=== PATIENT | female | born 1940 | race Caucasian/White ===

== ENCOUNTER 2018-05-31 12:28 | Emergency (ER) | payer MEDICARE, BC ==
[~2018-05-31] VITALS: Ht 157.5 cm; Wt 52.0 kg
[~2018-05-31 12:28] MED LIST: CRAN200C PO; DICY10CA88 PO; DILT120C46 PO; LOP25T PO; NEBI10TA4 PO; NORCO10T PO; PERM60CR4 TOP; [UNRECOGNIZED DRUG - CODE] PO
[2018-05-31] MEDS ORDERED: CYCL-1 PO (15:06)
[2018-05-31] MEDS ORDERED: morphine 4 MG/ML inj SYRINge IM ONE (15:10)
[2018-05-31] MEDS ORDERED: ondansetron 4mg rapidly disintigrating tab PO ONE (15:10)
[2018-05-31 16:07] VITALS: BP 146/62
== END 2018-05-31 16:09 | disposition home or self-care (01) ==
LOC: ER 12:29
DX: S46.811A Strain of other muscles, fascia and tendons at shoulder and upper arm level, right arm, initial encounter (principal); F11.23 Opioid dependence with withdrawal; I25.10 Atherosclerotic heart disease of native coronary artery without angina pectoris; I10 Essential (primary) hypertension; G89.29 Other chronic pain; Z90.49 Acquired absence of other specified parts of digestive tract; Z90.710 Acquired absence of both cervix and uterus; Z98.890 Other specified postprocedural states; Z88.1 Allergy status to other antibiotic agents; Z88.8 Allergy status to other drugs, medicaments and biological substances; Z79.899 Other long term (current) drug therapy; X50.1XXA Overexertion from prolonged static or awkward postures, initial encounter; Y93.89 Activity, other specified; Y92.89 Other specified places as the place of occurrence of the external cause; Y99.9 Unspecified external cause status
CPT/HCPCS: 96372; 99283; J2270

== ENCOUNTER 2019-07-26 10:58 | Inpatient (IN) | payer MEDICARE, BC ==
[~2019-07-26] VITALS: Ht 157.5 cm; Wt 47.0 kg
[~2019-07-26 10:58] MED LIST changes: +CYCL-1 PO; +atropine 0.1mg/ml 10ml syringe ONE
[2019-07-26] MEDS ORDERED: normal saline 1000ML IV soln IVB ONE (11:20)
--- NOTE | 2019-07-26 11:23 | NUR ---
MD AT BEDSIDE. PT PERFUSING POORLY, DISTAL CYANOSIS TO FINGERTIPS AND FEET, TIPS OF EARS. PT GIVEN DOSE OF ATROPINE, 0.5MG
[2019-07-26] MEDS ORDERED: atropine 0.1mg/ml 10ml syringe IV ONE (11:25)
[2019-07-26 11:34] LABS: BASOPHILS # (AUTO) 0.1 X10'3 (0-0.2); BASOPHILS % (AUTO) 0.6 % (0-1); EOSINOPHILS % (AUTO) 0.1 % (0-6); HEMATOCRIT 37.4 % (35.0-45.0); HEMOGLOBIN 11.9 g/dl (12.0-16.0); LYMPHOCYTES # (AUTO) 1.9 X10'3 (1.1-4.8); LYMPHOCYTES % (AUTO) 16.9 % (21-51); MEAN CORPUSCULAR HEMOGLOBIN 28.2 PG (27.0-31.0); MEAN CORPUSCULAR HGB CONC 31.8 g/dL (33.0-36.5); MEAN CORPUSCULAR VOLUME 88.7 FL (78-98); MEAN PLATELET VOLUME 8.7 FL (7.4-10.4); MONOCYTES # (AUTO) 0.6 X10'3 (0-0.9); MONOCYTES % (AUTO) 5.7 % (2-12); NEUTROPHILS # (AUTO) 8.7 X10'3 (1.8-7.7); NEUTROPHILS % (AUTO) 76.7 % (42-75); PLATELET COUNT 133 X10'3 (140-440); RED BLOOD COUNT 4.22 X10'6 (4.20-5.60); RED CELL DISTRIBUTION WIDTH 15.3 % (11.5-14.5); WHITE BLOOD COUNT 11.4 X10'3 (4.5-11.0)
--- NOTE | 2019-07-26 11:42 | NUR ---
BP IMPROVED AFTER ATROPINE DOSE, HEART RATE BETTER. DR STRICKLAND WAS IN ROOM TO CONSULT, EKG REPEATED. PT'S HEART RATE IN 40'S, HIGH 61, VARIABLE
[2019-07-26 11:47] LABS: PARTIAL THROMBOPLASTIN TIME 23 SECONDS (22-32)
[2019-07-26 11:49] LABS: ALANINE AMINOTRANSFERASE 19 U/L (12-78); ALBUMIN 3.1 G/DL (3.4-5.0); ALKALINE PHOSPHATASE 83 IU/L (46-116); ANION GAP 11 (8-16); ASPARTATE AMINO TRANSFERASE 22 U/L (10-37); BILIRUBIN,TOTAL 0.6 MG/DL (0.1-1.0); BLOOD UREA NITROGEN 18 MG/DL (7-18); CALCIUM 8.5 MG/DL (8.5-10.1); CHLORIDE 103 MMOL/L (99-107); CREATININE 1.29 MG/DL (0.40-0.90); GLUCOSE 117 MG/DL (70-104); POTASSIUM 4.7 MMOL/L (3.5-5.1); SODIUM 138 MMOL/L (135-145); TOTAL CARBON DIOXIDE 24.5 MMOL/L (24-32); TOTAL PROTEIN 6.2 G/DL (6.4-8.2); eGFR 40 ML/MIN
[2019-07-26 11:57] LABS: MAGNESIUM 1.9 MG/DL (1.5-2.4)
[2019-07-26] MEDS ORDERED: [UNRECOGNIZED DRUG - CODE] (11:58)
[2019-07-26] MEDS ORDERED: GABA-530 PO (11:58)
[2019-07-26] MEDS ORDERED: HYDR-3964 PO (11:58)
[2019-07-26] MEDS ORDERED: DULO20CA18 PO (11:58)
[2019-07-26] MEDS ORDERED: ESCI20TA38 PO (11:58)
[2019-07-26] MEDS ORDERED: CYCL-1 PO (11:59)
[2019-07-26] MEDS ORDERED: potassium Cl 20 mEq SR tablet PO PRN ×2 (13:05)
[2019-07-26] MEDS ORDERED: acetaminophen 325mg tablet PO PRN (13:05)
[2019-07-26] MEDS ORDERED: potassium CL 10mEq/100ml bag 100 ML IV PRN ×2 (13:05)
[2019-07-26] MEDS ORDERED: magnesium 2GM in 50ml NS 50 ML IV PRN (13:05)
[2019-07-26] MEDS ORDERED: magnesium Cl slow-release 64mg tablet PO PRN (13:05)
[2019-07-26] MEDS ORDERED: magnesium 4gm in 100ml NS 100 ML IV PRN (13:05)
[2019-07-26] MEDS ORDERED: ondansetron/PF 4mg/2ml inj IV PRN (13:05)
--- NOTE | 2019-07-26 13:46 | NUR ---
CALLED TO GIVE REPORT, NURSE BUSY, TO CALL BACK
[2019-07-26 14:23] VITALS: BP 133/61
--- NOTE | 2019-07-26 14:23 | NUR ---
ARRIVED TO ROOM 311 ACCE UNIT AT THIS TIME.
[2019-07-26] MEDS ORDERED: atropine 0.1mg/ml 10ml syringe IV PRN (14:45)
[2019-07-26 15:00] VITALS: BP_SYST 150; BP_SYST 158; BP_DIAS 72; BP_DIAS 79
[2019-07-26] MEDS: normal saline 1000ml 1,000 ML IV SCH (15:07)
[2019-07-26] MEDS ORDERED: FLU VACC QS2019-20 36MOS UP/PF 60 MCG/0.5 ML SYRINGE IMVAC ONE (16:35)
[2019-07-26 17:27] VITALS: BP 158/72
[2019-07-26 18:00] VITALS: BP 123/79
--- NOTE | 2019-07-26 18:00 | NUR ---
Patient in room MED 311. I have received report from Sindy CHADWICK and had the opportunity to ask questions and assume patient care.
--- NOTE | 2019-07-26 18:30 | NUR ---
Problems reprioritized. Patient report given, questions answered & plan of care reviewed with Charu CHADWICK.
--- NOTE | 2019-07-26 18:36 | NUR ---
Page to ECHO: 311 pt Brannon has an active order for an ECHO. Thank you.
--- NOTE | 2019-07-26 19:15 | NUR ---
promotional table spacer PAGER ID: [phone] MESSAGE: DAMEON LANDAVERDE: HOME MEDS CONFIRMED, MED REC NEEDED. NORCO FOR PAIN NOT ON EMAR, PLEASE ADD. VELMA CHADWICK ACCE [phone]
[2019-07-26 20:00] VITALS: BP_SYST 139; BP_SYST 145; BP_SYST 153; BP_DIAS 65; BP_DIAS 70; BP_DIAS 72
--- NOTE | 2019-07-26 20:23 | NUR ---
promotional table spacer PAGER ID: [phone] MESSAGE: 311 DAMEON MURPHY NEEDS PAIN MED FOR 8/10 NECK/SHOULDER PAIN, HOME MEDS INCLUDE NORCO AND MED REC NEEDS OK BY . PLEASE RESPOND, THANKS, VELMA CORRALES [phone]
[2019-07-26] MEDS ORDERED: hyDRALAzine 10mg tablet PO SCH (21:00)
[2019-07-26] MEDS ORDERED: hyDRALAzine 10mg tablet PO ONE (21:00)
[2019-07-26] MEDS: HYDROcodone/acetaminophen 5mg/325mg tablet PO PRN (21:03)
--- NOTE | 2019-07-26 21:16 | NUR ---
promotional table spacer PAGER ID: [phone] MESSAGE: 311 DAMEON LEE: REQUESTED PEPCID/OMEPRAZOLE FOR GERD-FORGOT TO MENTION THIS MED IN ER-VELMA ACCChelsi [phone]
[2019-07-26] MEDS ORDERED: hyDRALAzine 10mg tablet PO PRN (21:30)
[2019-07-26] MEDS ORDERED: pantoprazole 40mg Tablet.DR PO ONE (21:35)
[2019-07-26 22:00] VITALS: BP 139/70
--- NOTE | 2019-07-26 23:00 | NUR ---
received report from radha CHADWICK
[2019-07-27] MEDS: HYDROcodone/acetaminophen 5mg/325mg tablet PO PRN ×3 (01:16→10:54)
[2019-07-27 02:00] VITALS: BP 158/78
[2019-07-27] MEDS ORDERED: hyDRALAzine 10mg tablet PO SCH ×2 (02:00)
--- NOTE | 2019-07-27 06:00 | NUR ---
I have received report from Rubia Huizar RN and had the opportunity to ask questions and assume patient care.
[2019-07-27 06:24] LABS: BASOPHILS # (AUTO) 0.1 X10'3 (0-0.2); BASOPHILS % (AUTO) 1.1 % (0-1); EOSINOPHILS % (AUTO) 0.5 % (0-6); HEMATOCRIT 35.1 % (35.0-45.0); HEMOGLOBIN 11.5 g/dl (12.0-16.0); LYMPHOCYTES # (AUTO) 2.1 X10'3 (1.1-4.8); LYMPHOCYTES % (AUTO) 26.3 % (21-51); MEAN CORPUSCULAR HEMOGLOBIN 28.3 PG (27.0-31.0); MEAN CORPUSCULAR HGB CONC 32.7 g/dL (33.0-36.5); MEAN CORPUSCULAR VOLUME 86.5 FL (78-98); MEAN PLATELET VOLUME 8.6 FL (7.4-10.4); MONOCYTES # (AUTO) 0.5 X10'3 (0-0.9); MONOCYTES % (AUTO) 6.3 % (2-12); NEUTROPHILS # (AUTO) 5.2 X10'3 (1.8-7.7); NEUTROPHILS % (AUTO) 65.8 % (42-75); PLATELET COUNT 128 X10'3 (140-440); RED BLOOD COUNT 4.06 X10'6 (4.20-5.60); WHITE BLOOD COUNT 7.9 X10'3 (4.5-11.0)
--- NOTE | 2019-07-27 06:26 | NUR ---
gave report to NETTA Aaron
[2019-07-27 06:29] LABS: ALBUMIN 2.8 G/DL (3.4-5.0); ANION GAP 8 (8-16); BLOOD UREA NITROGEN 13 MG/DL (7-18); BUN/CREATININE RATIO 14.6 (6.6-38.0); CHLORIDE 106 MMOL/L (99-107); CREATININE 0.89 MG/DL (0.40-0.90); GLUCOSE 81 MG/DL (70-104); MAGNESIUM 1.8 MG/DL (1.5-2.4); POTASSIUM 3.8 MMOL/L (3.5-5.1); SODIUM 141 MMOL/L (135-145); TOTAL CARBON DIOXIDE 26.9 MMOL/L (24-32); eGFR 61 ML/MIN
[2019-07-27] MEDS ORDERED: pantoprazole 40mg Tablet.DR PO SCH (07:30)
[2019-07-27] MEDS: normal saline 1000ml 1,000 ML IV SCH (07:50)
[2019-07-27] MEDS ORDERED: K and/or MAG REPLACEMENT MC SCH (08:00)
[2019-07-27] MEDS ORDERED: duloxetine 20mg capsule.DR PO SCH (10:55)
[2019-07-27] MEDS ORDERED: cyclobenzaprine 10mg tablet PO PRN (10:55)
[2019-07-27] MEDS ORDERED: FLU VACC QS2019-20 36MOS UP/PF 60 MCG/0.5 ML SYRINGE IMVAC ONE (11:05)
--- NOTE | 2019-07-27 12:30 | NUR ---
Pt. given discharge instructions and all questions answered. PIV removed, no complications.
[2019-07-27] MEDS ORDERED: HYDROcodone/acetaminophen 5mg/325mg tablet PO SCH (13:00)
[2019-07-27] MEDS ORDERED: gabapentin 100mg capsule PO SCH (20:00)
[2019-07-27] MEDS ORDERED: dicyclomine 10 MG capsule PO SCH (20:00)
[2019-07-28] MEDS ORDERED: diltiazem CD 120mg capsule (once-daily) PO SCH (08:00)
[2019-07-28] MEDS ORDERED: CRANBERRY EXTRACT 200 MG PO SCH (08:00)
[2019-07-28] MEDS ORDERED: ESCITALOPRAM OXALATE 5 MG TABLET PO SCH (08:00)
[2019-07-28] MEDS ORDERED: FLU VACC QS2019-20 36MOS UP/PF 60 MCG/0.5 ML SYRINGE IMVAC ONE (10:00)
== END 2019-07-27 12:20 | disposition home health service (06) | DRG 312 ==
LOC: ER 10:59 → ED HOLD 13:04 → MED 3N 14:47
PROVIDERS: ADMIT Internal Medicine; ATTEND Internal Medicine
DX: I95.2 Hypotension due to drugs (principal); I10 Essential (primary) hypertension; I25.10 Atherosclerotic heart disease of native coronary artery without angina pectoris; M54.2 Cervicalgia; F32.9 Major depressive disorder, single episode, unspecified; T46.1X5A Adverse effect of calcium-channel blockers, initial encounter; T44.7X5A Adverse effect of beta-adrenoreceptor antagonists, initial encounter; M25.512 Pain in left shoulder; G89.29 Other chronic pain; J38.00 Paralysis of vocal cords and larynx, unspecified; M54.9 Dorsalgia, unspecified; Z90.49 Acquired absence of other specified parts of digestive tract; Z90.710 Acquired absence of both cervix and uterus; Z95.2 Presence of prosthetic heart valve; Z98.1 Arthrodesis status; Z79.899 Other long term (current) drug therapy; Z23 Encounter for immunization; Z88.1 Allergy status to other antibiotic agents; Y92.89 Other specified places as the place of occurrence of the external cause
CPT/HCPCS: 36415; 71045; 80048; 80053; 83735; 83880; 84484; 85025; 85610; 85730; 87081; 92508; 92616; 93005; 96361; 96374; 97116; 97162; 97530; 99285; G0378; J0461; J7030; Q2037

== ENCOUNTER 2020-01-05 11:34 | Emergency (ER) | payer MEDICARE, BC ==
[~2020-01-05] VITALS: Ht 157.5 cm; Wt 47.0 kg
[~2020-01-05 11:34] MED LIST changes: +DULO20CA18 PO; +ESCI20TA45 PO; +GABA-530 PO; +HYDR-3964 PO; -LOP25T PO; -NEBI10TA4 PO; -NORCO10T PO; -PERM60CR4 TOP; +[UNRECOGNIZED DRUG - CODE]; -atropine 0.1mg/ml 10ml syringe ONE
--- NOTE | 2020-01-05 11:56 | NUR ---
PT TO CT, PT IS 79 YO FEMALE C/O GRD LEVEL FALL TWO DAYS AGO, PT SAID SHE FELT LIKE SHE WAS GOING TO FAINT, FELL AND HIT EDGE OF SHOWER, +LOC "A FEW SECONDS", DX WITH UTI 3 DAYS AGO, COMPLIANT WITH TAKING ANTIBIOTIC PRESCRIBED, PT HAS BRUISE TO LEFT EYE, LEFT HAND, ABRASION TO LEFT FOREHEAD AND LEFT KNEE, BANDAID IS DRY AND INTACT, PT ABLE TO TRANSFER SELF FROM GURNEY TO WHEELCHAIR WITH MIN ASSISTANCE, C/O FEELING LIGHTHEADED
[2020-01-05 13:09] LABS: ALANINE AMINOTRANSFERASE 21 U/L (12-78); ALBUMIN 3.2 G/DL (3.4-5.0); ALBUMIN/GLOBULIN RATIO 0.9 (1.1-1.5); ALKALINE PHOSPHATASE 80 IU/L (46-116); ANION GAP 4 (8-16); ASPARTATE AMINO TRANSFERASE 24 U/L (10-37); BILIRUBIN,TOTAL 0.2 MG/DL (0.1-1.0); BLOOD UREA NITROGEN 18 MG/DL (7-18); BUN/CREATININE RATIO 12.1 (6.6-38.0); CALCIUM 9.1 MG/DL (8.5-10.1); CHLORIDE 101 MMOL/L (99-107); CREATININE 1.49 MG/DL (0.40-0.90); GLUCOSE 84 MG/DL (70-104); POTASSIUM 4.8 MMOL/L (3.5-5.1); SODIUM 135 MMOL/L (135-145); TOTAL CARBON DIOXIDE 29.7 MMOL/L (24-32); TOTAL PROTEIN 6.9 G/DL (6.4-8.2); eGFR 34 ML/MIN
[2020-01-05] MEDS ORDERED: normal saline 1000ML IV soln IVB ONE ×2 (13:15→14:45)
[2020-01-05 13:23] LABS: BASOPHILS # (AUTO) 0.1 X10'3 (0-0.2); BASOPHILS % (AUTO) 0.7 % (0-1); EOSINOPHILS # (AUTO) 0.1 X10'3 (0-0.9); EOSINOPHILS % (AUTO) 0.9 % (0-6); HEMATOCRIT 39.4 % (35.0-45.0); HEMOGLOBIN 12.7 g/dl (12.0-16.0); LYMPHOCYTES # (AUTO) 1.8 X10'3 (1.1-4.8); LYMPHOCYTES % (AUTO) 18.4 % (21-51); MEAN CORPUSCULAR HEMOGLOBIN 29.7 PG (27.0-31.0); MEAN CORPUSCULAR HGB CONC 32.4 g/dL (33.0-36.5); MEAN CORPUSCULAR VOLUME 91.8 FL (78-98); MONOCYTES # (AUTO) 0.6 X10'3 (0-0.9); MONOCYTES % (AUTO) 6.3 % (2-12); NEUTROPHILS % (AUTO) 73.7 % (42-75); PLATELET COUNT 198 X10'3 (140-440); RED BLOOD COUNT 4.29 X10'6 (4.20-5.60); RED CELL DISTRIBUTION WIDTH 13.6 % (11.5-14.5); WHITE BLOOD COUNT 9.5 X10'3 (4.5-11.0)
[2020-01-05 13:40] LABS: PARTIAL THROMBOPLASTIN TIME 25 SECONDS (22-32)
--- NOTE | 2020-01-05 13:58 | NUR ---
ATTEMPTED IV X2, NO SUCCESS, ANOTHER RN TO TRY
--- NOTE | 2020-01-05 15:08 | NUR ---
pt back from CT and MRI
--- NOTE | 2020-01-05 15:50 | NUR ---
labor trainer at bedside
[2020-01-05 15:59] LABS: CLARITY,URINE CLEAR (Clear); COLOR,URINE YELLOW (Yellow); GLUCOSE, URINE NEGATIVE (Neg); KETONES,URINE NEGATIVE (Neg); LEUKOCYTE ESTERASE ,URINE NEGATIVE (Neg); NITRITES, URINE NEGATIVE (Neg); OCCULT BLOOD,URINE NEGATIVE (Neg); PH,URINE 6.5 (4.8-8.0); PROTEIN,URINE NEGATIVE (Neg); UA COLLECTION TYPE CLN CATCH MIDSTREAM; UROBILINOGEN,URINE 0.2 E.U/dL (0.2-1.0)
[2020-01-05] MEDS ORDERED: CIPR-230 PO (16:58)
[2020-01-05 17:18] VITALS: BP 135/75
== END 2020-01-05 17:24 | disposition home or self-care (01) ==
LOC: ER 11:35
DX: S09.90XA Unspecified injury of head, initial encounter (principal); S69.92XA Unspecified injury of left wrist, hand and finger(s), initial encounter; R42 Dizziness and giddiness; N17.9 Acute kidney failure, unspecified; I25.10 Atherosclerotic heart disease of native coronary artery without angina pectoris; I10 Essential (primary) hypertension; G89.29 Other chronic pain; Z90.710 Acquired absence of both cervix and uterus; Z98.890 Other specified postprocedural states; Z90.49 Acquired absence of other specified parts of digestive tract; Z88.8 Allergy status to other drugs, medicaments and biological substances; Z79.2 Long term (current) use of antibiotics; Z79.899 Other long term (current) drug therapy; W19.XXXA Unspecified fall, initial encounter; Y93.E1 Activity, personal bathing and showering; Y92.89 Other specified places as the place of occurrence of the external cause; Y99.8 Other external cause status
CPT/HCPCS: 36415; 70450; 71045; 72125; 73090; 73130; 73560; 80053; 81003; 83880; 84484; 85025; 85610; 85730; 93005; 96360; 96361; 99285; J7030

== ENCOUNTER 2020-02-12 12:22 | Emergency (ER) | payer MEDICARE, BC ==
[~2020-02-12] VITALS: Ht 157.5 cm; Wt 47.7 kg
[2020-02-12] MEDS ORDERED: diphenhydrAMINE 50 mg/ml inj IM ONE (14:30)
[2020-02-12] MEDS ORDERED: proCHLORperazine 10 MG/2 ml inj IM ONE (14:30)
[2020-02-12 16:11] VITALS: BP 165/94
== END 2020-02-12 15:50 | disposition home or self-care (01) ==
LOC: ER 12:24
DX: G43.909 Migraine, unspecified, not intractable, without status migrainosus (principal); I25.10 Atherosclerotic heart disease of native coronary artery without angina pectoris; I10 Essential (primary) hypertension; G89.29 Other chronic pain; Z90.49 Acquired absence of other specified parts of digestive tract; Z90.710 Acquired absence of both cervix and uterus; Z98.890 Other specified postprocedural states; Z88.8 Allergy status to other drugs, medicaments and biological substances; Z79.899 Other long term (current) drug therapy
CPT/HCPCS: 70450; 72125; 96372; 99285; J0780; J1200

== ENCOUNTER 2020-03-05 21:48 | Emergency (ER) | payer MEDICARE, BC ==
[~2020-03-05] VITALS: Ht 157.5 cm; Wt 46.4 kg
--- NOTE | 2020-03-05 22:12 | NUR ---
pt to ct
[2020-03-05 22:19] LABS: BASOPHILS # (AUTO) 0.1 X10'3 (0-0.2); EOSINOPHILS # (AUTO) 0.1 X10'3 (0-0.9); EOSINOPHILS % (AUTO) 1.2 % (0-6); HEMATOCRIT 35.9 % (35.0-45.0); HEMOGLOBIN 11.8 g/dl (12.0-16.0); LYMPHOCYTES % (AUTO) 22.8 % (21-51); MEAN CORPUSCULAR HEMOGLOBIN 30.2 PG (27.0-31.0); MEAN CORPUSCULAR HGB CONC 32.9 g/dL (33.0-36.5); MEAN CORPUSCULAR VOLUME 91.9 FL (78-98); MEAN PLATELET VOLUME 8.1 FL (7.4-10.4); MONOCYTES # (AUTO) 0.6 X10'3 (0-0.9); MONOCYTES % (AUTO) 6.6 % (2-12); NEUTROPHILS # (AUTO) 5.9 X10'3 (1.8-7.7); NEUTROPHILS % (AUTO) 68.4 % (42-75); PLATELET COUNT 270 X10'3 (140-440); RED CELL DISTRIBUTION WIDTH 14.9 % (11.5-14.5); WHITE BLOOD COUNT 8.7 X10'3 (4.5-11.0)
[2020-03-05 22:31] LABS: ALANINE AMINOTRANSFERASE 16 U/L (12-78); ALBUMIN 2.9 G/DL (3.4-5.0); ALBUMIN/GLOBULIN RATIO 0.7 (1.1-1.5); ALKALINE PHOSPHATASE 77 IU/L (46-116); ANION GAP 4 (8-16); ASPARTATE AMINO TRANSFERASE 14 U/L (10-37); BILIRUBIN,TOTAL 0.2 MG/DL (0.1-1.0); BLOOD UREA NITROGEN 18 MG/DL (7-18); BUN/CREATININE RATIO 18.4 (6.6-38.0); CALCIUM 8.7 MG/DL (8.5-10.1); CHLORIDE 103 MMOL/L (99-107); CREATININE 0.98 MG/DL (0.40-0.90); GLUCOSE 90 MG/DL (70-104); POTASSIUM 4.2 MMOL/L (3.5-5.1); SODIUM 134 MMOL/L (135-145); TOTAL CARBON DIOXIDE 27.3 MMOL/L (24-32); TOTAL PROTEIN 6.8 G/DL (6.4-8.2); eGFR 55 ML/MIN
[2020-03-05 23:07] VITALS: BP 152/95
== END 2020-03-05 23:08 | disposition home or self-care (01) ==
LOC: ER 21:49
DX: S80.212A Abrasion, left knee, initial encounter (principal); S80.211A Abrasion, right knee, initial encounter; S09.90XA Unspecified injury of head, initial encounter; G44.319 Acute post-traumatic headache, not intractable; M54.2 Cervicalgia; G43.909 Migraine, unspecified, not intractable, without status migrainosus; I25.10 Atherosclerotic heart disease of native coronary artery without angina pectoris; I10 Essential (primary) hypertension; G89.29 Other chronic pain; Z90.710 Acquired absence of both cervix and uterus; Z98.890 Other specified postprocedural states; Z88.1 Allergy status to other antibiotic agents; Z79.899 Other long term (current) drug therapy; W18.30XA Fall on same level, unspecified, initial encounter; Y93.89 Activity, other specified; Y92.89 Other specified places as the place of occurrence of the external cause; Y99.8 Other external cause status
CPT/HCPCS: 36415; 70450; 80053; 85025; 93005; 99285

== ENCOUNTER 2020-11-14 03:26 | Inpatient (IN) | payer MEDICARE, BC ==
[~2020-11-14] VITALS: Ht 157.5 cm; Wt 47.8 kg
[~2020-11-14 03:26] MED LIST changes: +ESCI20TA39 PO; -ESCI20TA45 PO
[2020-11-14 05:41] LABS: BASOPHILS # (AUTO) 0.1 X10'3 (0-0.2); EOSINOPHILS # (AUTO) 0.1 X10'3 (0-0.9); HEMATOCRIT 41.4 % (35.0-45.0); HEMOGLOBIN 13.7 g/dl (12.0-16.0); WHITE BLOOD COUNT 17.7 X10'3 (4.5-11.0)
[2020-11-14 05:42] LABS: BASOPHILS % (AUTO) 0.3 % (0-1); EOSINOPHILS % (AUTO) 0.3 % (0-6); LYMPHOCYTES # (AUTO) 1.2 X10'3 (1.1-4.8); LYMPHOCYTES % (AUTO) 6.9 % (21-51); MEAN CORPUSCULAR HGB CONC 33.2 g/dL (33.0-36.5); MEAN CORPUSCULAR VOLUME 93.3 FL (78-98); MEAN PLATELET VOLUME 8.4 FL (7.4-10.4); MONOCYTES # (AUTO) 0.8 X10'3 (0-0.9); MONOCYTES % (AUTO) 4.6 % (2-12); NEUTROPHILS # (AUTO) 15.6 X10'3 (1.8-7.7); NEUTROPHILS % (AUTO) 87.9 % (42-75); PLATELET COUNT 239 X10'3 (140-440); RED BLOOD COUNT 4.43 X10'6 (4.20-5.60); RED CELL DISTRIBUTION WIDTH 13.6 % (11.5-14.5)
[2020-11-14] MEDS ORDERED: iohexol 300mg/ml 100ml inj. ONE (05:47)
[2020-11-14 05:50] LABS: ALANINE AMINOTRANSFERASE 24 U/L (12-78); ALBUMIN 3.2 G/DL (3.4-5.0); ALBUMIN/GLOBULIN RATIO 0.9 (1.1-1.5); ALKALINE PHOSPHATASE 74 IU/L (46-116); ANION GAP 7 (8-16); ASPARTATE AMINO TRANSFERASE 27 U/L (10-37); BILIRUBIN,TOTAL 0.3 MG/DL (0.1-1.0); BLOOD UREA NITROGEN 22 MG/DL (7-18); BUN/CREATININE RATIO 23.7 (6.6-38.0); CALCIUM 9.6 MG/DL (8.5-10.1); CHLORIDE 102 MMOL/L (99-107); CREATININE 0.93 MG/DL (0.40-0.90); GLUCOSE 118 MG/DL (70-104); LIPASE 52 U/L (73-393); POTASSIUM 4.2 MMOL/L (3.5-5.1); SODIUM 139 MMOL/L (135-145); TOTAL CARBON DIOXIDE 30.2 MMOL/L (24-32); TOTAL PROTEIN 6.6 G/DL (6.4-8.2); eGFR 58 ML/MIN
[2020-11-14] MEDS ORDERED: morphine 4 MG/ML inj SYRINge IV ONE (06:00)
--- NOTE | 2020-11-14 06:08 | NUR ---
pt to ct via kristy
[2020-11-14] MEDS ORDERED: normal saline 1000ML IV soln IVB ONE (06:10)
--- NOTE | 2020-11-14 06:15 | NUR ---
pt back from ct
[2020-11-14] MEDS ORDERED: piperacillin/tazo 3.375gm/50ml 50 ML IV ONE (07:05)
[2020-11-14] MEDS ORDERED: metroNIDAZOLE-Flagyl 500mg/NS 100 ML IV ONE (07:05)
[2020-11-14 07:11] LABS: CLARITY,URINE CLEAR (Clear); COLOR,URINE YELLOW (Yellow); GLUCOSE, URINE NEGATIVE (Neg); KETONES,URINE NEGATIVE (Neg); LEUKOCYTE ESTERASE ,URINE NEGATIVE (Neg); NITRITES, URINE NEGATIVE (Neg); OCCULT BLOOD,URINE NEGATIVE (Neg); PROTEIN,URINE NEGATIVE (Neg); UROBILINOGEN,URINE 0.2 E.U/dL (0.2-1.0)
[2020-11-14 07:15] LABS: UA COLLECTION TYPE OTHER
[2020-11-14] MEDS ORDERED: magnesium hydroxide 30ml (MOM) UD suspension PO PRN (08:00)
[2020-11-14] MEDS ORDERED: acetaminophen 325mg tablet PO PRN (08:00)
[2020-11-14] MEDS: metroNIDAZOLE-Flagyl 500mg/NS 100 ML IV SCH ×2 (08:00→16:31)
[2020-11-14] MEDS ORDERED: mag hydrox/Alum hydrox/simeth 30ml oral suspension PO PRN (08:00)
[2020-11-14] MEDS ORDERED: ondansetron/PF 4mg/2ml inj IV PRN (08:00)
[2020-11-14] MEDS ORDERED: morphine 2 MG/ML inj. syringe IV PRN ×2 (08:00)
[2020-11-14] MEDS: normal saline 1000ml 1,000 ML IV SCH ×2 (09:31→18:51)
[2020-11-14] MEDS: heparin, porcine 5000 units/ml vial SQ SCH ×2 (09:32→22:32)
--- NOTE | 2020-11-14 11:15 | NUR ---
Pt ambulated to the restroom without any difficulty.
--- NOTE | 2020-11-14 12:16 | NUR ---
Explained to pt and her the reason for pt's admission to the hospital.
[2020-11-14] MEDS ORDERED: PROP300T2 PO (12:58)
[2020-11-14] MEDS ORDERED: NORT25CA PO (12:58)
[2020-11-14] MEDS ORDERED: DILT-88 PO (12:58)
[2020-11-14] MEDS ORDERED: CLOR3.755 PO (12:58)
[2020-11-14] MEDS ORDERED: GABA300T25 PO (12:58)
[2020-11-14] MEDS ORDERED: ESTR20VI4 IM (12:58)
[2020-11-14] MEDS ORDERED: GABA-530 PO (13:00)
[2020-11-14] MEDS ORDERED: CYCL-394 PO (13:00)
--- NOTE | 2020-11-14 13:43 | NUR ---
Pt sleeping. Respirations unlabored. NAD
[2020-11-14] MEDS ORDERED: cyclobenzaprine 10mg tablet PO PRN (14:25)
[2020-11-14] MEDS ORDERED: ESTRADIOL VALERATE 20 MG/ML IM SCH (14:25)
[2020-11-14] MEDS ORDERED: GABA300C PO (14:39)
--- NOTE | 2020-11-14 14:54 | NUR ---
Checked with pt, she states that she does not need her estrogen shot at this time. She will get it from her doctor after she is out of the hospital.
--- NOTE | 2020-11-14 15:18 | NUR ---
Pt resting with eyes closed. Respirations unlabored. NAD
--- NOTE | 2020-11-14 17:43 | NUR ---
Pt is sleeping. Respirations unlabored. NAD
--- NOTE | 2020-11-14 17:44 | NUR ---
Called pt's , Ubaldo, to ask if he could bring her Clorazepate when he came to visit her tonight. He said he would.
[2020-11-14] MEDS: CLORAZEPATE 3.75 MG PO SCH (20:00)
[2020-11-14] MEDS ORDERED: nortriptyline 25mg capsule PO SCH (21:00)
[2020-11-14] MEDS ORDERED: gabapentin 300mg capsule PO SCH (21:00)
[2020-11-14] MEDS: diatr meglu/diatrizoate 30ml oral sol.-(3 dose) bottle PO SCH (22:25)
[2020-11-14] MEDS: propafenone 150mg tablet PO SCH (22:25)
[2020-11-15] MEDS: HYDROcodone/acetaminophen 5mg/325mg tablet PO PRN ×2 (00:14→06:49)
[2020-11-15] MEDS: metroNIDAZOLE-Flagyl 500mg/NS 100 ML IV SCH ×2 (00:14→08:41)
[2020-11-15] MEDS: normal saline 1000ml 1,000 ML IV SCH (05:19)
[2020-11-15] MEDS: diatr meglu/diatrizoate 30ml oral sol.-(3 dose) bottle PO SCH ×2 (06:49→07:56)
[2020-11-15] MEDS ORDERED: gabapentin 100mg capsule PO SCH (07:30)
[2020-11-15] MEDS ORDERED: iohexol 300mg/ml 100ml inj. ONE (07:54)
[2020-11-15] MEDS: propafenone 150mg tablet PO SCH (08:00)
[2020-11-15] MEDS: CLORAZEPATE 3.75 MG PO SCH (08:00)
[2020-11-15] MEDS ORDERED: diltiazem CD 120mg capsule (once-daily) PO SCH (08:00)
--- NOTE | 2020-11-15 08:00 | NUR ---
patient found in room with both IV's pulled out. Appears slightly disoriented but able to answer orientation questions appropriately. patient cleaned up, linens changed, and iv restarted for CT.
[2020-11-15] MEDS: heparin, porcine 5000 units/ml vial SQ SCH (08:44)
--- NOTE | 2020-11-15 08:57 | NUR ---
PT AMBULATED TO BATHROOM
[2020-11-15 10:01] LABS: BASOPHILS % (AUTO) 0.7 % (0-1); EOSINOPHILS % (AUTO) 0.7 % (0-6); HEMATOCRIT 39.6 % (35.0-45.0); LYMPHOCYTES # (AUTO) 1.5 X10'3 (1.1-4.8); LYMPHOCYTES % (AUTO) 22.5 % (21-51); MEAN CORPUSCULAR HEMOGLOBIN 31.3 PG (27.0-31.0); MEAN CORPUSCULAR HGB CONC 32.8 g/dL (33.0-36.5); MEAN CORPUSCULAR VOLUME 95.5 FL (78-98); MEAN PLATELET VOLUME 8.6 FL (7.4-10.4); MONOCYTES # (AUTO) 0.4 X10'3 (0-0.9); MONOCYTES % (AUTO) 5.3 % (2-12); NEUTROPHILS # (AUTO) 4.7 X10'3 (1.8-7.7); NEUTROPHILS % (AUTO) 70.8 % (42-75); PLATELET COUNT 201 X10'3 (140-440); RED BLOOD COUNT 4.15 X10'6 (4.20-5.60); RED CELL DISTRIBUTION WIDTH 13.7 % (11.5-14.5); WHITE BLOOD COUNT 6.7 X10'3 (4.5-11.0)
[2020-11-15 10:08] LABS: ALBUMIN 3.2 G/DL (3.4-5.0); ANION GAP 11 (8-16); BLOOD UREA NITROGEN 14 MG/DL (7-18); BUN/CREATININE RATIO 14.4 (6.6-38.0); CALCIUM 8.2 MG/DL (8.5-10.1); CHLORIDE 102 MMOL/L (99-107); CREATININE 0.97 MG/DL (0.40-0.90); GLUCOSE 121 MG/DL (70-104); POTASSIUM 3.5 MMOL/L (3.5-5.1); SODIUM 139 MMOL/L (135-145); TOTAL CARBON DIOXIDE 25.7 MMOL/L (24-32); eGFR 55 ML/MIN
[2020-11-15 12:34] VITALS: BP 146/67
[2020-11-22] MEDS ORDERED: ESTRADIOL VALERATE 20 MG/ML IM SCH (08:00)
== END 2020-11-15 12:35 | disposition home or self-care (01) | DRG 392 ==
LOC: ER 03:27 → ED HOLD 07:59
PROVIDERS: ADMIT Family Medicine; ATTEND Family Medicine
PROC: BW211ZZ Computerized Tomography (CT Scan) of Abdomen and Pelvis using Low Osmolar Contrast (ICD-10-PCS; principal; 2020-11-14)
PROC: BW211ZZ Computerized Tomography (CT Scan) of Abdomen and Pelvis using Low Osmolar Contrast (ICD-10-PCS; 2020-11-15)
DX: A08.4 Viral intestinal infection, unspecified (principal); E86.0 Dehydration; G89.29 Other chronic pain; I10 Essential (primary) hypertension; I25.10 Atherosclerotic heart disease of native coronary artery without angina pectoris; F32.9 Major depressive disorder, single episode, unspecified; M54.9 Dorsalgia, unspecified; F41.9 Anxiety disorder, unspecified; G43.909 Migraine, unspecified, not intractable, without status migrainosus; Z90.710 Acquired absence of both cervix and uterus; Z88.8 Allergy status to other drugs, medicaments and biological substances; Z90.49 Acquired absence of other specified parts of digestive tract
CPT/HCPCS: 36415; 74177; 80048; 80053; 81003; 83690; 85025; 87081; 96374; 99285; G0378; J1644; J2270; J2405; J2543; J3490; J7030; Q9963; Q9967

== ENCOUNTER 2021-02-05 14:23 | Emergency (ER) | payer MEDICARE, BC ==
[~2021-02-05] VITALS: Ht 157.5 cm; Wt 47.7 kg
[~2021-02-05 14:23] MED LIST changes: +CLOR3.755 PO; -CRAN200C PO; -CYCL-1 PO; +CYCL-394 PO; -DICY10CA88 PO; +DILT-88 PO; -DILT120C46 PO; -DULO20CA18 PO; -ESCI20TA39 PO; +ESTR20VI4 IM; +GABA300C PO; -HYDR-3964 PO; +NORT25CA PO; +PROP300T2 PO; -[UNRECOGNIZED DRUG - CODE]; -[UNRECOGNIZED DRUG - CODE] PO
--- NOTE | 2021-02-05 14:54 | NUR ---
, Ubaldo, bedside. Reports found pt on floor when he came home after having been gone 2 hrs. BP and HR low so he called EMS.
[2021-02-05 15:09] LABS: BASOPHILS % (AUTO) 0.5 % (0-1); EOSINOPHILS % (AUTO) 0.3 % (0-6); HEMATOCRIT 32.4 % (35.0-45.0); HEMOGLOBIN 10.6 g/dl (12.0-16.0); LYMPHOCYTES # (AUTO) 0.9 X10'3 (1.1-4.8); LYMPHOCYTES % (AUTO) 10.2 % (21-51); MEAN CORPUSCULAR HEMOGLOBIN 32.2 PG (27.0-31.0); MEAN CORPUSCULAR HGB CONC 32.8 g/dL (33.0-36.5); MEAN CORPUSCULAR VOLUME 98.4 FL (78-98); MEAN PLATELET VOLUME 8.4 FL (7.4-10.4); MONOCYTES # (AUTO) 0.4 X10'3 (0-0.9); MONOCYTES % (AUTO) 4.7 % (2-12); NEUTROPHILS # (AUTO) 7.5 X10'3 (1.8-7.7); NEUTROPHILS % (AUTO) 84.3 % (42-75); PLATELET COUNT 140 X10'3 (140-440); RED CELL DISTRIBUTION WIDTH 13.8 % (11.5-14.5)
[2021-02-05 15:32] LABS: ALANINE AMINOTRANSFERASE 27 U/L (12-78); ALBUMIN 2.2 G/DL (3.4-5.0); ALBUMIN/GLOBULIN RATIO 0.9 (1.1-1.5); ALKALINE PHOSPHATASE 75 IU/L (46-116); ANION GAP 7 (8-16); ASPARTATE AMINO TRANSFERASE 25 U/L (10-37); BILIRUBIN,TOTAL 0.4 MG/DL (0.1-1.0); BLOOD UREA NITROGEN 17 MG/DL (7-18); BUN/CREATININE RATIO 15.6 (6.6-38.0); CALCIUM 6.4 MG/DL (8.5-10.1); CHLORIDE 111 MMOL/L (99-107); CREATININE 1.09 MG/DL (0.40-0.90); GLUCOSE 98 MG/DL (70-104); POTASSIUM 3.7 MMOL/L (3.5-5.1); SODIUM 141 MMOL/L (135-145); TOTAL CARBON DIOXIDE 23.2 MMOL/L (24-32); TOTAL PROTEIN 4.6 G/DL (6.4-8.2); eGFR 48 ML/MIN
[2021-02-05] MEDS ORDERED: normal saline 1000ml 1,000 ML IV ONE (15:35)
[2021-02-05 15:43] LABS: ETHANOL < 0.010 GM/DL (0.0-0.010); MAGNESIUM 1.5 MG/DL (1.5-2.4)
[2021-02-05] MEDS ORDERED: aspirin 325mg tablet PO ONE (16:00)
[2021-02-05] MEDS ORDERED: OMEP-50 PO (16:52)
[2021-02-05] MEDS ORDERED: LOP25T PO (16:52)
[2021-02-05] MEDS ORDERED: PREVCR VG (16:52)
[2021-02-05 17:13] LABS: CLARITY,URINE CLOUDY (Clear); COLOR,URINE YELLOW (Yellow); GLUCOSE, URINE NEGATIVE (Neg); KETONES,URINE 15 mg/dl (Neg); LEUKOCYTE ESTERASE ,URINE NEGATIVE (Neg); NITRITES, URINE NEGATIVE (Neg); OCCULT BLOOD,URINE NEGATIVE (Neg); PROTEIN,URINE 30 mg/dl (Neg); UROBILINOGEN,URINE 0.2 E.U/dL (0.2-1.0)
[2021-02-05 17:20] LABS: UA COLLECTION TYPE URINAL
[2021-02-05] MEDS ORDERED: HYDROcodone/acetaminophen 5mg/325mg tablet PO PRN (17:20)
[2021-02-05] MEDS ORDERED: normal saline 1000ml 1,000 ML IV SCH ×2 (17:20→17:25)
[2021-02-05] MEDS ORDERED: acetaminophen 325mg tablet PO PRN ×2 (17:20)
[2021-02-05] MEDS ORDERED: morphine 2 MG/ML inj. syringe IV PRN (17:20)
[2021-02-05] MEDS ORDERED: magnesium 2GM in 50ml NS 50 ML IV PRN (17:20)
[2021-02-05] MEDS ORDERED: potassium Cl 40MEQ/1/2NS 520ml 520 ML IV PRN ×2 (17:20)
[2021-02-05] MEDS ORDERED: ondansetron/PF 4mg/2ml inj IV PRN (17:20)
[2021-02-05] MEDS ORDERED: magnesium Cl slow-release 64mg tablet PO PRN (17:20)
[2021-02-05] MEDS ORDERED: potassium Cl 20 mEq SR tablet PO PRN ×2 (17:20)
[2021-02-05] MEDS ORDERED: magnesium 4gm in 100ml NS 100 ML IV PRN (17:20)
[2021-02-05 17:22] LABS: HYALINE CASTS >30 /LPF (NEGATIVE); MUCUS STRANDS MODERATE /LPF (Neg); SQUAMOUS EPITHELIAL CELL,UR MANY /LPF (FEW)
[2021-02-05 17:23] LABS: BACTERIA,URINE 2+ /HPF (Neg); RBC,URINE 0-2 /HPF (0-2); WBC,URINE 0-4 /HPF (0-4)
[2021-02-05 17:28] LABS: URINE AMPHETAMINE SCREEN NEGATIVE (Neg); URINE BARBITUATE SCREEN NEGATIVE (Neg); URINE BENZODIAZEPINES SCREEN POSITIVE (Neg); URINE CANNABINOID SCREEN POSITIVE (Neg); URINE COCAINE SCREEN NEGATIVE (Neg); URINE METHADONE SCREEN NEGATIVE (Neg); URINE OPIATE SCREEN POSITIVE (Neg); URINE PHENCYCLIDINE SCREEN NEGATIVE (Neg)
--- NOTE | 2021-02-05 18:49 | NUR ---
pt having echo done at bedside
[2021-02-05 19:28] VITALS: BP 167/105
[2021-02-05] MEDS ORDERED: K and/or MAG REPLACEMENT MC SCH (20:00)
[2021-02-05] MEDS ORDERED: metoprolol tartrate 25mg tablet PO SCH (20:00)
[2021-02-05] MEDS ORDERED: heparin, porcine 5000 units/ml vial SQ SCH (20:00)
[2021-02-05] MEDS ORDERED: nortriptyline 25mg capsule PO SCH (21:00)
[2021-02-05] MEDS ORDERED: gabapentin 300mg capsule PO SCH (21:00)
[2021-02-06] MEDS ORDERED: pantoprazole 40mg Tablet.DR PO SCH (07:30)
[2021-02-06] MEDS ORDERED: diltiazem CD 120mg capsule (once-daily) PO SCH (08:00)
== END 2021-02-05 20:45 | disposition left against medical advice (07) ==
LOC: ER 14:24 → UNDOADMIN 17:16 → ED HOLD 17:16 → UNDOADMIN 17:36 → ED HOLD 17:36 → UNDODISIN 20:45
DX: I63.9 Cerebral infarction, unspecified (principal); R55 Syncope and collapse; E83.51 Hypocalcemia; I48.91 Unspecified atrial fibrillation; R42 Dizziness and giddiness; G43.909 Migraine, unspecified, not intractable, without status migrainosus; I25.10 Atherosclerotic heart disease of native coronary artery without angina pectoris; I10 Essential (primary) hypertension; G89.29 Other chronic pain; Z86.69 Personal history of other diseases of the nervous system and sense organs; Z90.710 Acquired absence of both cervix and uterus; Z98.890 Other specified postprocedural states; Z88.1 Allergy status to other antibiotic agents; Z88.8 Allergy status to other drugs, medicaments and biological substances; Z79.899 Other long term (current) drug therapy
CPT/HCPCS: 36415; 70450; 71045; 80053; 80305; 80320; 81001; 83735; 83880; 84484; 85025; 93005; 93306; 93880; 96360; 96361; 99285; J7030; G0378

== ENCOUNTER 2021-07-30 11:12 | Outpatient (CLI) | payer MEDICARE, BC ==
[2021-07-30] VITALS (22 sets, daily range): BP systolic 138–179; BP diastolic 88–119
[~2021-07-30 11:12] MED LIST changes: +LOP25T PO; +OMEP-50 PO; +PREVCR VG
== END 2021-07-30 23:59 | disposition home or self-care (01) ==
LOC: CARD DIAG 11:12
PROVIDERS: ATTEND Internal Medicine Cardiovascular Disease
DX: R42 Dizziness and giddiness (principal)
CPT/HCPCS: 93660

== ENCOUNTER 2021-10-07 11:42 | Inpatient (IN) | payer MEDICARE, BC ==
[~2021-10-07] VITALS: Ht 160 cm; Wt 65.0 kg
[~2021-10-07 11:42] MED LIST changes: -OMEP-50 PO; +OMEP20CA16 PO
[2021-10-07] MEDS ORDERED: diltiazem-D5W 125mg/125ml 125 ML IV SCH (11:55)
[2021-10-07] MEDS ORDERED: amiodarone 150mg/dext, iso-os 100 ML IV ONE (12:00)
[2021-10-07 12:20] LABS: BASOPHILS % (AUTO) 0.8 % (0-1); EOSINOPHILS # (AUTO) 0.1 X10'3 (0-0.9); EOSINOPHILS % (AUTO) 1.4 % (0-6); HEMOGLOBIN 13.6 g/dl (12.0-16.0); LYMPHOCYTES # (AUTO) 1.7 X10'3 (1.1-4.8); LYMPHOCYTES % (AUTO) 29.1 % (21-51); MEAN CORPUSCULAR HGB CONC 32.4 g/dL (33.0-36.5); MEAN CORPUSCULAR VOLUME 95.6 FL (78-98); MEAN PLATELET VOLUME 8.4 FL (7.4-10.4); MONOCYTES # (AUTO) 0.5 X10'3 (0-0.9); MONOCYTES % (AUTO) 8.9 % (2-12); NEUTROPHILS # (AUTO) 3.5 X10'3 (1.8-7.7); NEUTROPHILS % (AUTO) 59.8 % (42-75); PLATELET COUNT 209 X10'3 (140-440); RED CELL DISTRIBUTION WIDTH 13.7 % (11.5-14.5); WHITE BLOOD COUNT 5.9 X10'3 (4.5-11.0)
[2021-10-07] MEDS ORDERED: etomidate 2mg/ml inj. IV ONE (12:20)
[2021-10-07] MEDS ORDERED: normal saline 1000ml 1,000 ML IV ONE (12:25)
[2021-10-07] MEDS ORDERED: NORepinephrine 8mg/ 250ml NS 250 ML IV ONE (12:28)
[2021-10-07] MEDS ORDERED: NORepinephrine inj. 32 MG in normal saline 250ml IV soln 218 ML IV SCH (12:30)
[2021-10-07 12:39] LABS: ALANINE AMINOTRANSFERASE 26 U/L (12-78); ALBUMIN 2.9 G/DL (3.4-5.0); ALBUMIN/GLOBULIN RATIO 0.9 (1.1-1.5); ALKALINE PHOSPHATASE 65 IU/L (46-116); ANION GAP 8 (8-16); ASPARTATE AMINO TRANSFERASE 14 U/L (10-37); BILIRUBIN,TOTAL 0.2 MG/DL (0.1-1.0); BLOOD UREA NITROGEN 22 MG/DL (7-18); BUN/CREATININE RATIO 19.5 (6.6-38.0); CALCIUM 7.7 MG/DL (8.5-10.1); CHLORIDE 112 MMOL/L (99-107); CREATININE 1.13 MG/DL (0.40-0.90); GLUCOSE 128 MG/DL (70-104); POTASSIUM 4.1 MMOL/L (3.5-5.1); SODIUM 146 MMOL/L (135-145); TOTAL CARBON DIOXIDE 26.1 MMOL/L (24-32); eGFR 46 ML/MIN
[2021-10-07 12:49] LABS: MAGNESIUM 1.7 MG/DL (1.5-2.4)
[2021-10-07] MEDS ORDERED: NORepinephrine 8mg/ 250ml NS 250 ML IV SCH (12:50)
[2021-10-07] MEDS ORDERED: mag hydrox/Alum hydrox/simeth 30ml oral suspension PO PRN (13:15)
[2021-10-07] MEDS ORDERED: ondansetron/PF 4mg/2ml inj IV PRN (13:15)
[2021-10-07] MEDS ORDERED: morphine 2 MG/ML inj. syringe IV PRN ×2 (13:15)
[2021-10-07] MEDS ORDERED: acetaminophen 325mg tablet PO PRN ×2 (13:15)
[2021-10-07] MEDS ORDERED: magnesium hydroxide 30ml (MOM) UD suspension PO PRN (13:15)
[2021-10-07] MEDS ORDERED: NAPR220T67 PO (13:52)
[2021-10-07] MEDS ORDERED: DILT-35 PO (13:52)
[2021-10-07] MEDS ORDERED: TRAZ-251 PO (13:52)
[2021-10-07] MEDS ORDERED: METO-395 PO (13:52)
[2021-10-07] MEDS ORDERED: GABA-530 PO (13:52)
[2021-10-07] MEDS ORDERED: gabapentin 100mg capsule PO PRN (17:35)
[2021-10-07] MEDS ORDERED: traZODone 50mg tablet PO PRN (17:35)
[2021-10-07] MEDS ORDERED: naproxen sodium 220mg tablet PO PRN (17:35)
[2021-10-07 20:00] VITALS: BP 148/70
[2021-10-07] MEDS: docusate sod 100mg capsule PO SCH (20:00)
--- NOTE | 2021-10-08 00:18 | NUR ---
Paged DR. Dias for a Troponin of 78
[2021-10-08 05:20] VITALS: BP 148/70
[2021-10-08 06:00] VITALS: BP 135/66
[2021-10-08 06:21] LABS: BASOPHILS # (AUTO) 0.1 X10'3 (0-0.2); BASOPHILS % (AUTO) 0.7 % (0-1); EOSINOPHILS # (AUTO) 0.1 X10'3 (0-0.9); EOSINOPHILS % (AUTO) 1.8 % (0-6); HEMATOCRIT 37.2 % (35.0-45.0); HEMOGLOBIN 12.4 g/dl (12.0-16.0); LYMPHOCYTES # (AUTO) 2.5 X10'3 (1.1-4.8); LYMPHOCYTES % (AUTO) 32.7 % (21-51); MEAN CORPUSCULAR HEMOGLOBIN 31.4 PG (27.0-31.0); MEAN CORPUSCULAR HGB CONC 33.4 g/dL (33.0-36.5); MEAN CORPUSCULAR VOLUME 94.2 FL (78-98); MEAN PLATELET VOLUME 8.6 FL (7.4-10.4); MONOCYTES # (AUTO) 0.7 X10'3 (0-0.9); MONOCYTES % (AUTO) 8.7 % (2-12); NEUTROPHILS # (AUTO) 4.2 X10'3 (1.8-7.7); NEUTROPHILS % (AUTO) 56.1 % (42-75); PLATELET COUNT 193 X10'3 (140-440); RED BLOOD COUNT 3.95 X10'6 (4.20-5.60); RED CELL DISTRIBUTION WIDTH 13.8 % (11.5-14.5); WHITE BLOOD COUNT 7.5 X10'3 (4.5-11.0)
--- NOTE | 2021-10-08 06:21 | NUR ---
Problems reprioritized. Patient report given, questions answered & plan of care reviewed with Kristian CHADWICK .
[2021-10-08 06:47] LABS: ALBUMIN 2.8 G/DL (3.4-5.0); ANION GAP 10 (8-16); BLOOD UREA NITROGEN 16 MG/DL (7-18); CALCIUM 7.7 MG/DL (8.5-10.1); CHLORIDE 109 MMOL/L (99-107); CREATININE 0.64 MG/DL (0.40-0.90); GLUCOSE 83 MG/DL (70-104); POTASSIUM 3.6 MMOL/L (3.5-5.1); SODIUM 144 MMOL/L (135-145); TOTAL CARBON DIOXIDE 25.5 MMOL/L (24-32); eGFR 89 ML/MIN
[2021-10-08 08:00] VITALS: BP 135/66
[2021-10-08] MEDS ORDERED: metoprolol succinate 25mg (24-HOUR) SR. Tablet PO SCH (08:00)
[2021-10-08] MEDS ORDERED: diltiazem CD 120mg capsule (once-daily) PO SCH (08:00)
[2021-10-08] MEDS: docusate sod 100mg capsule PO SCH (08:39)
[2021-10-08 10:08] VITALS: BP 135/66
== END 2021-10-08 11:01 | disposition home or self-care (01) | DRG 308 ==
LOC: ER 11:43 → ED HOLD 13:16 → MED 3N 20:00
PROVIDERS: ADMIT Internal Medicine; ATTEND Internal Medicine
PROC: 5A2204Z Restoration of Cardiac Rhythm, Single (ICD-10-PCS; principal; 2021-10-07)
DX: I48.0 Paroxysmal atrial fibrillation (principal); N17.0 Acute kidney failure with tubular necrosis; I10 Essential (primary) hypertension; I25.10 Atherosclerotic heart disease of native coronary artery without angina pectoris; G43.909 Migraine, unspecified, not intractable, without status migrainosus; G89.29 Other chronic pain; M54.9 Dorsalgia, unspecified; I95.9 Hypotension, unspecified; R13.10 Dysphagia, unspecified; R29.6 Repeated falls; Z79.899 Other long term (current) drug therapy; Z86.73 Personal history of transient ischemic attack (TIA), and cerebral infarction without residual deficits; Z90.710 Acquired absence of both cervix and uterus; Z95.3 Presence of xenogenic heart valve; Z98.1 Arthrodesis status; Z88.8 Allergy status to other drugs, medicaments and biological substances; Z90.49 Acquired absence of other specified parts of digestive tract; Z88.1 Allergy status to other antibiotic agents
CPT/HCPCS: 36415; 71045; 80048; 80053; 83605; 83735; 83880; 84145; 84443; 84484; 85025; 85610; 87081; 93005; 93306; 94760; 94799; 96365; 96375; 99285; G0378; J0282; J3490; J7030

== ENCOUNTER 2022-05-05 11:35 | Emergency (ER) | payer MEDICARE, BC ==
[~2022-05-05] VITALS: Ht 157.5 cm; Wt 47.7 kg
[~2022-05-05 11:35] MED LIST changes: +ATOR40TA72 PO; +CLOP75TA33 PO; -CLOR3.755 PO; -CYCL-394 PO; +DILT-35 PO; -DILT-88 PO; -ESTR20VI4 IM; +HYDR-3965 PO; -LOP25T PO; +METO-395 PO; -NORT25CA PO; -PREVCR VG; -PROP300T2 PO
[2022-05-05 12:10] LABS: BASOPHILS # (AUTO) 0.1 X10'3 (0-0.2); BASOPHILS % (AUTO) 0.8 % (0-1); EOSINOPHILS # (AUTO) 0.1 X10'3 (0-0.9); EOSINOPHILS % (AUTO) 0.6 % (0-6); HEMATOCRIT 41.6 % (35.0-45.0); HEMOGLOBIN 14.1 g/dl (12.0-16.0); LYMPHOCYTES # (AUTO) 1.5 X10'3 (1.1-4.8); MEAN CORPUSCULAR HEMOGLOBIN 31.6 PG (27.0-31.0); MEAN CORPUSCULAR HGB CONC 33.8 g/dL (33.0-36.5); MEAN CORPUSCULAR VOLUME 93.5 FL (78-98); MEAN PLATELET VOLUME 8.1 FL (7.4-10.4); MONOCYTES # (AUTO) 0.8 X10'3 (0-0.9); MONOCYTES % (AUTO) 8.1 % (2-12); NEUTROPHILS # (AUTO) 7.4 X10'3 (1.8-7.7); NEUTROPHILS % (AUTO) 75.5 % (42-75); PLATELET COUNT 198 X10'3 (140-440); RED BLOOD COUNT 4.45 X10'6 (4.20-5.60); RED CELL DISTRIBUTION WIDTH 13.1 % (11.5-14.5); WHITE BLOOD COUNT 9.8 X10'3 (4.5-11.0)
[2022-05-05 12:25] LABS: ALANINE AMINOTRANSFERASE 46 U/L (12-78); ALBUMIN 3.5 G/DL (3.4-5.0); ALBUMIN/GLOBULIN RATIO 1.1 (1.1-1.5); ALKALINE PHOSPHATASE 91 IU/L (46-116); ANION GAP 12 (8-16); ASPARTATE AMINO TRANSFERASE 28 U/L (10-37); BILIRUBIN,TOTAL 0.5 MG/DL (0.1-1.0); BLOOD UREA NITROGEN 20 MG/DL (7-18); CALCIUM 9.6 MG/DL (8.5-10.1); CHLORIDE 98 MMOL/L (99-107); CREATININE 1.05 MG/DL (0.40-0.90); GLUCOSE 107 MG/DL (70-104); POTASSIUM 4.7 MMOL/L (3.5-5.1); SODIUM 136 MMOL/L (135-145); TOTAL CARBON DIOXIDE 26.1 MMOL/L (24-32); TOTAL PROTEIN 6.7 G/DL (6.4-8.2); eGFR 50 ML/MIN
[2022-05-05] MEDS ORDERED: normal saline 1000ML IV soln IVB ONE (15:55)
[2022-05-05 16:27] LABS: CLARITY,URINE CLEAR (Clear); COLOR,URINE YELLOW (Yellow); GLUCOSE, URINE NEGATIVE (Neg); KETONES,URINE NEGATIVE (Neg); LEUKOCYTE ESTERASE ,URINE NEGATIVE (Neg); NITRITES, URINE NEGATIVE (Neg); OCCULT BLOOD,URINE NEGATIVE (Neg); PH,URINE 7.5 (4.8-8.0); PROTEIN,URINE NEGATIVE (Neg); UROBILINOGEN,URINE 0.2 E.U/dL (0.2-1.0)
[2022-05-05 16:44] LABS: UA COLLECTION TYPE STRAIGHT CATH
[2022-05-05 17:00] VITALS: BP 157/70
--- NOTE | 2022-05-05 17:30 | NUR ---
Pt's stated that he thinks that his took a total of 1300ml of neurontin over a 2 hour period yesterday. Completed at 1800 yesterday. Also, she uses CBD oil.
--- NOTE | 2022-05-05 18:01 | NUR ---
Pt and given and understands d/c instructions. IV d/c'd, catheter was intact. Escorted out of the department via wheelchair.
== END 2022-05-05 18:00 | disposition home or self-care (01) ==
LOC: ER 11:36
DX: R53.1 Weakness (principal); R35.0 Frequency of micturition; R06.02 Shortness of breath; R42 Dizziness and giddiness; G43.909 Migraine, unspecified, not intractable, without status migrainosus; I11.9 Hypertensive heart disease without heart failure; G89.29 Other chronic pain; M54.9 Dorsalgia, unspecified; M54.59 Other low back pain; Z90.49 Acquired absence of other specified parts of digestive tract; Z88.1 Allergy status to other antibiotic agents; Z79.899 Other long term (current) drug therapy
CPT/HCPCS: 36415; 71045; 80053; 81003; 83880; 84484; 85025; 93005; 99285; J7030; A4353